=== PATIENT | female | born 1980 | race Caucasian/White ===

== ENCOUNTER 2018-09-27 23:17 | Emergency (ER) | payer OTHER ==
[2018-09-27 23:26] VITALS: BMI 46.8
--- NOTE | 2018-09-27 23:48 | PDOC ---
Rapid Medical Evaluation Chief Complaint: Vaginal Bleeding Time Seen by Provider: 09/27/18 23:33 Medical Evaluation: Vital Signs Temp Pulse Resp BP Pulse Ox 97.7 F 77 18 172/96 H 100 09/27/18 23:23 09/27/18 23:23 09/27/18 23:23 09/27/18 23:23 09/27/18 23:23 09/27/18 23:46 Patient presents emergency department for evaluation of vaginal bleeding which started yesterday. Patient is currently 20 weeks and 2 days by ultrasound performed last week patient has a delivery date of 02/12/19. Physical exam is notable for gravid abdomen. Pelvic exam is deferred I have ordered nothing on this patient Patient will proceed to labor and delivery for evaluation
[2018-09-28 00:55] VITALS: BP 148/78; PULSE 67; TEMP 98.3
== END 2018-09-28 01:45 | disposition home or self-care (01) ==
LOC: JER 23:17
DX: O26.892 Other specified pregnancy related conditions, second trimester (principal); O26.852 Spotting complicating pregnancy, second trimester; Z3A.20 20 weeks gestation of pregnancy
CPT/HCPCS: 76801-TC; 99282-25